=== PATIENT | female | born 1995 | race American Indian/Alaskan Native ===

== ENCOUNTER 2020-05-26 13:17 | Emergency (ER) | payer MEDICAID, OTHER ==
[~2020-05-26] VITALS: Ht 170.2 cm; Wt 72.6 kg
[2020-05-26 13:42] LABS: *BILIRUBIN,URIN NEGATIVE (NEGATIVE); *BLOOD, URINE NEGATIVE (NEGATIVE); *CLARITY,URINE CLEAR (CLEAR); *COLOR,URINE YELLOW (YELLOW); *KETONES,URINE NEGATIVE (NEGATIVE); *UROBILINOGEN,URINE 0.2 E.U./dl (NORMAL); LEUKOCYTE ESTERASE ,URINE NEGATIVE (NEGATIVE); NITRITE, URINE NEGATIVE (NEGATIVE); UGLUCOSE NEGATIVE (NEGATIVE)
[2020-05-26 13:46] LABS: *URINE HCG, QUAL NEGATIVE (NEGATIVE)
[2020-05-26 13:48] LABS: BASOPHILS % (AUTO) 0.4 % (0.0-2.0); EOSINOPHILS # (AUTO) 0.2 K/uL (0.0-0.7); EOSINOPHILS % (AUTO) 2.6 % (0.0-7.0); HEMATOCRIT 30.9 % (31.2-41.9); HEMOGLOBIN 9.8 g/dL (10.9-14.3); LYMPHOCYTES # (AUTO) 2.3 K/uL (20.0-40.0); LYMPHOCYTES % (AUTO) 29.1 % (20.5-51.5); MEAN CORPUSCULAR HEMOGLOBIN 22.4 uug (24.7-32.8); MEAN CORPUSCULAR HGB CONC 32 g/dL (32.3-35.6); MEAN CORPUSCULAR VOLUME 70.7 fL (75.5-95.3); MONOCYTES # (AUTO) 0.6 K/uL (2.0-10.0); MONOCYTES % (AUTO) 7.1 % (0.0-11.0); NEUTROPHILS # (AUTO) 4.8 K/uL (1.8-8.9); NEUTROPHILS % (AUTO) 60.8 % (38.5-71.5); PLATELET COUNT (AUTO) 386 K/uL (179-408); RED BLOOD CELL COUNT(AUTO) 4.38 MIL/uL (3.63-4.92)
[2020-05-26 13:53] LABS: CREATININE 0.6 mg/dL (0.6-1.3); POTASSIUM 3.8 mmol/L (3.5-5.1)
[2020-05-26 13:59] LABS: BILIRUBIN,DIRECT 0.1 mg/dL (0.0-0.2); BILIRUBIN,TOTAL 0.3 mg/dL (0.2-1.0); TOTAL PROTEIN, SERUM 7.9 g/dL (6.4-8.2)
--- NOTE | 2020-05-26 14:17 | NUR ---
Patient discharged to home in stable condition. Written and verbal after care instructions given. Patient verbalizes understanding of instructions. Stressed follow up or return to ER for worsening s/s.
[2020-05-26 14:28] LABS: LYMPHOCYTES % (MANUAL) 36 % (20-40); MONOCYTES % (MANUAL) 3 % (2-10); MYELOCYTES % 3 % (0-0); NEUTROPHILS % (MANUAL) 58 % (42-75)
== END 2020-05-26 14:11 | disposition home or self-care (01) ==
LOC: ER 13:17
DX: Z02.2 Encounter for examination for admission to residential institution (principal); D53.9 Nutritional anemia, unspecified; I45.10 Unspecified right bundle-branch block
CPT/HCPCS: 36415; 70030-TC; 71045; 83690; 84703; 85025; 93005; A4663

== ENCOUNTER 2020-05-27 03:28 | Emergency (ER) | payer OTHER ==
[~2020-05-27] VITALS: Ht 170.2 cm; Wt 72.6 kg
== END 2020-05-27 03:55 | disposition home or self-care (01) ==
LOC: ER 03:31
DX: Z02.2 Encounter for examination for admission to residential institution (principal); D53.9 Nutritional anemia, unspecified
CPT/HCPCS: A4663

== ENCOUNTER 2020-08-04 01:52 | Emergency (ER) | payer SELFPAY ==
--- NOTE | 2020-08-04 02:00 | NUR ---
Patient was called bu was not present.
--- NOTE | 2020-08-04 02:15 | NUR ---
Patient came up to registration window and told staff member "I will come back. I am going to get something to eat." Patient was no present to be triaged
--- NOTE | 2020-08-04 02:45 | NUR ---
PATIENT WAS OBSERVED BY STAFF ENTERING ER WAITING AND SOON AFTER CAME UP TO REGISTERATION WINDOW AND TOLD STAFF MEMBER "I WILL BE BACK I AM GOING TO GET COFFEE." PATIENT WAS INSTRUCTED NOT TO LEAVE WAITING ROOM SO SHE CAN BE CALLED WHEN STAFF IS READY TO TRAIGED HER. PATIENT LEFT.
--- NOTE | 2020-08-04 03:40 | NUR ---
PATIENT WAS CALLED TO BE TRIAGED BUT WAS NOT PRESENT.
--- NOTE | 2020-08-04 04:48 | NUR ---
PATIENT WAS CALLED SEVERAL TIMES TO BE TRAIGED. PATIENT WAS NOT PRESENT. PATIENT WAS NOT TRIAGED OR SEEN BY ERMD.
== END 2020-08-04 04:49 | disposition left against medical advice (07) ==
LOC: ER 01:54
DX: Z53.21 Procedure and treatment not carried out due to patient leaving prior to being seen by health care provider (principal)